=== PATIENT | female | born 1995 | race African-American/Black ===

== ENCOUNTER 2022-02-28 14:27 | Emergency (ER) | payer OTHER ==
[~2022-02-28] VITALS: Ht 149.9 cm; Wt 66.0 kg
[2022-02-28 15:20] VITALS: BP 111/81
[2022-02-28] MEDS ORDERED: METOCLOPRAMIDE HCL 10MG/2ML VIAL IV ONE (18:00)
[2022-02-28] MEDS ORDERED: SODIUM CHLORIDE 0.9% 1,000 ML IV ONE (18:00)
== END 2022-02-28 20:00 | disposition home or self-care (01) ==
LOC: ER 14:27
DX: G43.909 Migraine, unspecified, not intractable, without status migrainosus (principal); Z88.8 Allergy status to other drugs, medicaments and biological substances; Z86.59 Personal history of other mental and behavioral disorders; Z98.890 Other specified postprocedural states
CPT/HCPCS: 70450; 96374; 99284; J7030